=== PATIENT | male | born 1945 | race Caucasian/White ===

== ENCOUNTER 2021-01-11 11:45 | Emergency (ER) | payer OTHER ==
[~2021-01-11 11:45] MED LIST: IPRAT-ALBUT 0.5-3 ML INH; MUCINEX600 MG PO
== END 2021-01-11 14:45 | disposition home or self-care (01) ==
LOC: ER1 11:45
DX: Z23 Encounter for immunization (principal); U07.1 COVID-19; I10 Essential (primary) hypertension; F17.220 Nicotine dependence, chewing tobacco, uncomplicated; Z90.89 Acquired absence of other organs
CPT/HCPCS: 99283; M0243